=== PATIENT | male | born 1950 | race Caucasian/White ===

== ENCOUNTER 2019-01-13 09:10 | Inpatient (IN) | payer MEDICARE ==
[~2019-01-13] VITALS: Ht 180.3 cm; Wt 101.2 kg
[2019-01-13] VITALS (15 sets, daily range): BP systolic 103–142; BP diastolic 48–75
[~2019-01-13 09:10] MED LIST: ATENOLOL50 MG PO; ESCITALOPRAM OX10 MG PO; GLUCOPHAGE XL500 MG PO; LISINOPRIL10 MG PO; VERAPAMIL ER300 MG PO; Z.0.GLIPIZIDE ER10 M PO
[2019-01-13] MEDS ORDERED: SODIUM CHLORIDE 0.9% 1000ML 1,000 ML IV ONE (09:45)
[2019-01-13 09:50] LABS: BASOPHILS % 0.3 % (0.0-1.0); EOSINOPHILS # (AUTO) 0.1 (0.0-0.4); EOSINOPHILS % 0.5 % (0.0-6.0); HEMOGLOBIN 7.5 g/dL (14.0-18.0); LYMPHOCYTES % 6.7 % (18.0-39.1); MEAN CORPUSCULAR HEMOGLOBIN 32.2 pg (28-32); MEAN CORPUSCULAR HGB CONC 32.6 g/dL (31-35); MEAN CORPUSCULAR VOLUME 98.7 fL (81-99); MONOCYTES # (AUTO) 1.7 (0.2-0.8); MONOCYTES % 11.8 % (4.4-11.3); NEUTROPHILS # (AUTO) 11.6 (2.1-6.9); NEUTROPHILS % 80.1 % (38.7-80.0); PLATELET COUNT 241 x10e3/uL (140-360); RED BLOOD COUNT 2.33 x10e6/uL (4.3-5.7); RED CELL DISTRIBUTION WIDTH 12.6 % (11.7-14.4)
[2019-01-13 10:08] LABS: ALANINE AMINOTRANSFERASE 14 IU/L (0-55); ALBUMIN 3.6 g/dL (3.5-5.0); ALBUMIN/GLOBULIN RATIO 1.6 (0.8-2.0); ALKALINE PHOSPHATASE 40 IU/L (40-150); ANION GAP 12.5 mmol/L (8-16); BLOOD UREA NITROGEN 22 mg/dL (7-26); BUN/CREATININE RATIO 26 (6-25); CALCIUM 8.8 mg/dL (8.4-10.2); CARBON DIOXIDE 21 mmol/L (22-29); CHLORIDE 102 mmol/L (98-107); CREATINE KINASE 84 IU/L (30-200); CREATININE, SERUM 0.85 mg/dL (0.72-1.25); EST GLOMERULAR FILTRATION RATE > 60 ML/MIN (60-); GLUCOSE 307 mg/dL (74-118); POTASSIUM 4.5 mmol/L (3.5-5.1); SODIUM 131 mmol/L (136-145)
[2019-01-13] MEDS ORDERED: PANTOPRAZOLE 40 MG 10ML VIAL IV ONE (10:30)
[2019-01-13] MEDS ORDERED: ACETAMINOPHEN 1000 MG/100 ML IV ONE (10:30)
--- NOTE | 2019-01-13 10:30 | Diagnostic Imaging Report ---
Chest, 1 view, 01/13/2019. History: Shortness of breath. Comparison: None available. Findings: The cardiomediastinal silhouette and pulmonary vasculature are within normal limits for a portable exam. There is no focal consolidation or pleural effusion. There are no acute osseous or soft tissue abnormalities. Impression: No acute cardiopulmonary abnormality. Signed by: Chas Clements on 01/13/2019 10:27 AM
[2019-01-13 11:57] LABS: BILIRUBIN,URINE NEGATIVE (NEGATIVE); CLARITY,URINE CLEAR (CLEAR); COLOR,URINE YELLOW (YELLOW); KETONES,URINE NEGATIVE (NEGATIVE); LEUKOCYTE ESTERASE ,URINE NEGATIVE (NEGATIVE); NITRITE,URINE NEGATIVE (NEGATIVE); PROTEIN,URINE DIPSTICK NEGATIVE (NEGATIVE); URINE UROBILINOGEN 0.2 mg/dL (0.2 - 1)
[2019-01-13] MEDS ORDERED: NOVOLOG100 UNITS1 (12:41)
[2019-01-13] MEDS ORDERED: ATORVASTATIN CA20 MG PO (12:41)
[2019-01-13] MEDS ORDERED: LEVEMIR100 UNIT/1 (12:41)
--- NOTE | 2019-01-13 12:46 | Diagnostic Imaging Report ---
CT of the abdomen and pelvis, with contrast, 01/13/2019. History: Fever, melanoma. Comparison: None available. Technique: Multidetector CT scanning of the abdomen and pelvis was performed from the level of the lung bases to the inferior pubic rami after intravenous administration of contrast. Coronal and sagittal multiplanar reformations were obtained. RADIATION DOSE: Total DLP: 807 mGy*cm Dose modulation, iterative reconstruction, and/or weight based adjustment of the mA/kV was utilized to reduce the radiation dose to as low as reasonably achievable. Discussion: LUNG BASES: There is right basilar atelectasis. A calcified granuloma is present in the right lower lobe. ABDOMEN: Multiple surgical clips are present in the left upper quadrant. Cholecystectomy clips are also present. The liver is enlarged measuring over 18 cm in length. There is no focal hepatic abnormality. The biliary tree, spleen, pancreas, adrenal glands, and kidneys are normal. The hepatic vein, portal vein, and splenic vein are patent. The abdominal aorta is within normal limits for size. The stomach and proximal small bowel are unremarkable. There is no bowel dilatation. However, there is diffuse circumferential thickening of a long segment of the distal small bowel with adjacent mesenteric fat stranding. The terminal ileum is not involved in this process. There is no evidence of free air or focal fluid collection. A few scattered diverticuli are present within the sigmoid colon. The colon is otherwise unremarkable. Scattered subcentimeter mesenteric lymph nodes are present. There is no evidence of adenopathy or free fluid. PELVIS: The bladder, prostate, and seminal vesicles are normal in appearance. There is no evidence of free fluid or adenopathy. BONES AND SOFT TISSUES: Degenerative changes are present throughout the lumbar spine without evidence of lytic or sclerotic lesion. IMPRESSION: 1. Long segment of e distal small bowel wall thickening without evidence of obstruction, perforation, or abscess, consistent with inflammatory/infectious process. 2. Minimal colonic diverticulosis without evidence of diverticulitis. Signed by: Chas Clements on 01/13/2019 12:43 PM
[2019-01-13 12:54] LABS: INR 0.94; PROTHROMBIN TIME 13.1 seconds (11.9-14.5)
[2019-01-13 12:55] LABS: PARTIAL THROMBOPLASTIN TIME 25.8 seconds (23.8-35.5)
[2019-01-13] MEDS ORDERED: SODIUM CHLORIDE 0.9% 1000ML 1,000 ML IV SCH (13:00)
[2019-01-13 13:05] LABS: BACTERIA,URINE FEW /HPF; EPITHELIAL CELLS,URINE FEW /LPF; RBC,URINE 0-5 /HPF (0-5); WBC,URINE (MAN) 0-5 /HPF (0-5)
[2019-01-13] MEDS ORDERED: SODIUM CHLORIDE FLUSH 10 ML SYR INJ PRN (13:15)
[2019-01-13] MEDS ORDERED: SODIUM CHLORIDE 0.9% 250ML 250 ML IV ONE (13:15)
[2019-01-13] MEDS ORDERED: DEXTROSE 50% SYRINGE 50 ML IV PRN (13:15)
[2019-01-13] MEDS ORDERED: ERTAPENEM 1GM/NS 100ML 100 ML IV SCH (13:30)
[2019-01-13] MEDS ORDERED: INSULIN REGULAR, HUMAN 100 UNIT/1 ML 3ML VIAL SQ ONE (13:45)
--- OUTSIDE RECORDS SUMMARY | 2019-01-13 13:46 | XMS REPORT ---
Author Author [facility] Address Unknown Phone Unavailable Care Team Providers Care Oven Equipment Repairer Name Role Phone Jt LANE Unavailable Unavailable Problems This patient has no known problems. Allergies, Adverse Reactions, Alerts This patient has no known allergies or adverse reactions. Medications This patient has no known medications. Results Test Description Test Time Test Comments Text Results Atomic Results Result Comments CT ABDOMEN/PELVIS W 2019-01-13 12:33:00 [place] [address] Patient Name: LUCRECIA REYNOLDS MR #: [id number] : 1950 Age/Sex: 68/M Req #: [id number] Adm Physician: Ordered by: NAOMIE LANE MD Report #: [id number] Location: ER Room/Bed: Procedure: [id number] CT/CT ABDOMEN/PELVIS W Exam Date: 01/13/19 Exam Time: 1215 REPORT STATUS: Signed CT of the abdomen and pelvis, with contrast, . History: Fever, melanoma. Comparison: None available. Technique: Multidetector CT scanning of the abdomen and pelvis was performed from the level of the lung bases to the inferior pubic rami after intravenous administration of contrast. Coronal and sagittal multiplanar reformations were obtained. RADIATION DOSE: Total DLP: 807 mGy*cm Dose mod ulation, iterative reconstruction, and/or weight based adjustment of the mA/kV was utilized to reduce the radiation dose to as low as reasonably achievable. Discussion: LUNG BASES: There is right basilar atelectasis. A calcified granuloma is present in the right lower lobe. ABDOMEN: Multiple surgical clips are present in the left upper quadrant. Cholecystectomy clips are also p resent. The liver is enlarged measuring over 18 cm in length. There is no focal hepatic abnormality. The biliary tree, spleen, pancreas, adrenal glands, and kidneys are normal. The hepatic vein, portal vein, and splenic vein are patent. The abdominal aorta is within normal limits for size. The stomach and proximal small bowel are unremarkable. There is no bowel dilatation. However, there is diffuse circumferential thickening of a long segment of the distal small bowel with adjacent mesenteric fat stranding. The terminal ileum is not involved in this process. There is no evidence of free air or focal fluid collection. A few scattered diverticuli are present within the sigmoid colon. The colon is otherwise unremarkable. Scattered subcentimeter mesenteric lymph nodes are present. There is no evidence of adenopathy or free fluid. PELVIS: The bladder, prostate, and seminal vesicles are normal in appearance. There is no evidence of free fluid or adenopathy. BONES AND SOFT TISSUES: Degenerative changes are present throughout the lumbar spine without evidence of lytic or sclerotic lesion. IMPRESSION: 1. Long segment of e distal small bowel wall thickening without evidence of obstruction, perforation, or abscess, consistent with inflammatory/infectious process. 2. Minimal colonic diverticulosis without evidence of diverticulitis. Signed by: Glenna Dial on 01/13/2019 12:43 PM Dictated By: GLENNA DIAL MD 1243 Transcribed By: TAN on 01/13/19 1243 COPY TO: NAOMIE LANE MD CHEST SINGLE (PORTABLE) 2019-01-13 10:26:00 [place] [address] Patient Name: LUCRECIA REYNOLDS MR #: [id number] : 1950 Age/Sex: 68/M Req #: [id number] Adm Physician: Ordered by: NAOMIE LANE MD Report #: [id number] Location: ER Room/Bed: Procedure: [id number] DX/CHEST SINGLE (PORTABLE) Exam Date: 01/13/19 Exam Time: 929 REPORT STATUS: Signed Chest, 1 view, 01/13/2019. History: Shortness of breath. Comparison: None available. Findings: The cardiomediastinal silhouette and pulmonary vasculature are within normal limits for a portable exam. There is no focal consolidation or pleural effusion. There are no acute osseous or soft tissue abnormalities. Impression: No acute cardiopulmonary abnormality. Signed by: Glenna Dial on 01/13/2019 10:27 AM Dictated By: GLENNA DIAL MD 1027 Transcribed By: TAN on 01/13/19 1027 COPY TO: NAOMIE LANE MD
[2019-01-13] MEDS ORDERED: SODIUM CHLORIDE 0.9% 50ML 50 ML ONE (14:19)
[2019-01-13] MEDS ORDERED: IOPAMIDOL 370 MG/ML 200 ML INFUS..BTL INJ ONE (14:19)
[2019-01-13] MEDS: ONDANSETRON HCL INJ 2MG/ML 2ML 2 MG/ML VIAL IV PRN ×2 (14:38→19:36)
[2019-01-13] MEDS: SODIUM CHLORIDE 0.9% 1000ML 1,000 ML IV SCH (15:02)
[2019-01-13] MEDS ORDERED: ACETAMINOPHEN 325 MG TAB PO ONE ×2 (15:15→18:45)
[2019-01-13] MEDS ORDERED: INSULIN REGULAR, HUMAN 100 UNIT/1 ML 3ML VIAL SQ SCH (16:30)
[2019-01-13] MEDS ORDERED: SODIUM CHLORIDE 0.9% 250ML 250 ML ONE ×2 (17:18→21:32)
[2019-01-13] MEDS: INSULIN REGULAR, HUMAN 100 UNIT/1 ML 3ML VIAL SQ SCH (18:22)
[2019-01-13] MEDS ORDERED: ACETAMINOPHEN 325 MG TAB ONE (18:37)
[2019-01-13] MEDS ORDERED: DIPHENHYDRAMINE HCL INJ 50 MG/ML VIAL ONE (18:38)
--- NOTE | 2019-01-13 18:43 | NUR ---
Patient arrived to ICU bed 195. Dr. Scar Chandra notified of patient being nauseated, orders given for Zofran PRN. Dr. Julio Chandra notified that patient has low grade fever upon arrival, orders for one time dose Tylenol given. Telephone consent for blood transfusion obtained from Shreya with a second RN witness. Dr. Chandra notified at 1830 that patient developing increase in fever 102.2 oral temp about 1 hour into transfusion, MD ordered Tylenol and Benadryl. Will continue to monitor.
[2019-01-13] MEDS ORDERED: DIPHENHYDRAMINE HCL INJ 50 MG/ML VIAL IV ONE (18:45)
--- NOTE | 2019-01-13 18:57 | NUR ---
pt family contact number is [phone] Shreya Saenz the
[2019-01-14] VITALS (23 sets, daily range): BP systolic 99–126; BP diastolic 48–92
[2019-01-14] MEDS: ACETAMINOPHEN 325 MG TAB PO PRN ×3 (00:01→14:38)
[2019-01-14] MEDS: SODIUM CHLORIDE 0.9% 1000ML 1,000 ML IV SCH ×4 (03:55→23:28)
[2019-01-14 05:33] LABS: HEMATOCRIT 23.3 % (38.2-49.6); HEMOGLOBIN 7.6 g/dL (14.0-18.0)
[2019-01-14] MEDS: METRONIDAZOLE 500MG/NS 100ML 100 ML IV SCH ×5 (05:40→23:30)
[2019-01-14] MEDS: ONDANSETRON HCL INJ 2MG/ML 2ML 2 MG/ML VIAL IV PRN ×3 (05:41→19:55)
[2019-01-14] MEDS: INSULIN REGULAR, HUMAN 100 UNIT/1 ML 3ML VIAL SQ SCH ×5 (05:54→23:35)
[2019-01-14 07:13] LABS: INR 1.04; PROTHROMBIN TIME 14.1 seconds (11.9-14.5)
[2019-01-14] MEDS: PANTOPRAZOLE 40 MG 10ML VIAL IV SCH (08:47)
--- NOTE | 2019-01-14 12:18 | Consultation ---
DATE OF CONSULTATION: REASON FOR CONSULTATION: Fever. HISTORY OF PRESENT ILLNESS: This patient was a very pleasant 68-year-old white male, history of hypertension. The patient comes in to the emergency room with rectal bleed. The patient has been having pain in his knee and is taking Advil. There is no diarrhea, but he was having rectal bleed and some nausea, so he came here. When he came here shows nausea, fever, so I was asked to see him. The patient is currently lying in bed comfortably. REVIEW OF SYSTEMS: GENERAL: He just not feeling well in general, having rectal bleed. There is no diarrhea. Some nausea, but there is no vomiting. HEENT: No headache, visual changes, or hearing changes. GI: There is nausea, but no diarrhea. : There is no urgency or frequency. SKIN: There are no other rashes. JOINTS: There is no erythema or edema. All symptoms within normal limits. MEDICATIONS: His medication list is currently on Tylenol, Zofran. He is on ertapenem and metronidazole. LABORATORY DATA: His blood cultures pending. His urine culture is pending. He had a CT scan of the abdomen and pelvis, which showed there is large segment of distal small bowel thickening without evidence of obstruction, perforation, or abscess consistent with inflammatory infectious etiology. PHYSICAL EXAMINATION: GENERAL: He is currently alert, oriented, does not seem to be in acute distress. VITAL SIGNS: Stable, currently afebrile. HEENT: He is not icteric. NECK: Supple. No JVD. No lymphadenopathy. No thyromegaly. CHEST: Clear bilateral. HEART: S1 and S2. No S3, S4, or murmur. ABDOMEN: Soft. Bowel sounds present. No tenderness. EXTREMITIES: No edema. SKIN: No rash. IMPRESSION: 1. Fever and chills. CAT scan is significant with gastroenteritis. 2. Gastrointestinal bleed. 3. The patient does have history of colonoscopy 5 years ago, which was unremarkable. He also does deer leasing, but he said he does not eat a deer meat and he has not been in contact with deer till recently when apparently the illness started before he went to the deer. 4. Anemia of acute gastrointestinal bleed. We will await blood cultures, urine cultures. He may need small intestine workup, also colonoscopy. We will discuss with GI. MD MIHAELA Stephenson /[id number]
[2019-01-14 12:26] LABS: HEMOGLOBIN 7.7 g/dL (14.0-18.0)
[2019-01-14] MEDS: CEFEPIME 1GM/NS 0.9% 50 ML 50 ML IV SCH ×2 (13:15→22:00)
[2019-01-14] MEDS ORDERED: CEFEPIME HCL 1 GM VIAL IV SCH (14:00)
--- NOTE | 2019-01-14 15:53 | NUR ---
Nutrition Screen Note RD Recommendation for Physician: - When medically appropriate, rec advancing diet to cardiac/ ADA 2000kcal diet Plan of Care: RD following, monitoring for tolerance and adequacy Nutrition reason for involvement: Nutrition Risk Trigger - [facility] Primary Diagnose(s): Fever, chills, GI bleed, anemia PMH: HTN, DM Ht: 71in Wt: 223.06lb BMI: 31.1kg/m2 IBW: 172lb +/- 10% RD Assessment: (01/14) Chart reviewed. Labs and meds reviewed. 68yo M, who was admitted for fever, chills and rectal bleeding. Abd/pel CT showed distal small bowel wall thickening without evidence of obstruction, perforation, or abscess, consistent with inflammatory/infectious process. Visited pt in the room. 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 LBM 01/14. Pt denied any nausea or vomiting. Pt denied any chewing or swallowing issue at home. Weight has been stable. Currently NPO for further workup. Current Diet: NPO Malnutrition Evaluation (01/14/2019) The patient does not meet criteria for a specified degree of malnutrition at this time. Will re-evaluate at follow-up as appropriate. Diet Education Needs Assessment: Diet education not indicated. Nutrition Care Level: low Signed: Jeanna Norwood, MS, RD, LD
[2019-01-14] MEDS ORDERED: PEG (High)/E-LYTE SOLN 4,000 ML BTL PO NR (16:15)
--- NOTE | 2019-01-14 16:50 | Operative Report ---
DATE OF PROCEDURE: 01/14/2019 SURGEON: Saeid Chandra MD PROCEDURE: EGD with biopsies. INDICATIONS FOR EGD: Anemia, history of melena. MEDICATIONS: The patient was done under MAC, please see anesthesiologist's note. PROCEDURE IN DETAIL: With the patient in left lateral decubitus position, the flexible fiberoptic Olympus gastroscope was introduced into the esophagus under direct visualization without any difficulty. There was some patchy erythema noted in distal esophagus. The scope was then advanced with ease into the stomach. Mucosa overlying the antrum and the body revealed some patchy erythema and low-grade to moderate edema. Biopsies were obtained and sent to stain for H. pylori. The pylorus was intubated with ease and the scope was advanced all the way to the second portion of the duodenum. The scope was then withdrawn slowly mucosa overlying the proximal second portion and duodenal bulb appeared to be within normal limits. The scope was then withdrawn back into the stomach and retroflexed and mucosa overlying the fundus appeared to be within normal limits. The Tita fundoplication was noted and it was intact. The scope was then straightened out, it was subsequently withdrawn. The patient tolerated the procedure well. IMPRESSION: 1. Distal esophagitis, mild. 2. Tita fundoplication, intact. 3. Gastritis, biopsied, biopsies sent to stain for H. pylori. PLAN: Follow up histology. Initiate Protonix 40 mg one p.o. q.a.m. a.c. Findings none explained the patient's anemia or blood loss. He will need a colonoscopy. Saeid Chandra MD [facility]/[place] /[id number] cc: Ez Chandra MD
[2019-01-14] MEDS ORDERED: PROPOFOL IV EMULSION 10 MG/ML 50 ML VIAL ONE (18:33)
[2019-01-14 19:50] LABS: HEMATOCRIT 25.6 % (38.2-49.6); HEMOGLOBIN 8.4 g/dL (14.0-18.0)
[2019-01-15] VITALS (16 sets, daily range): BP systolic 100–135; BP diastolic 57–80
[2019-01-15] MEDS: ACETAMINOPHEN 325 MG TAB PO PRN ×3 (01:55→22:02)
[2019-01-15] MEDS: SODIUM CHLORIDE 0.9% 1000ML 1,000 ML IV SCH ×3 (05:07→20:46)
[2019-01-15 05:11] LABS: HEMATOCRIT 21.7 % (38.2-49.6)
[2019-01-15] MEDS: INSULIN REGULAR, HUMAN 100 UNIT/1 ML 3ML VIAL SQ SCH ×3 (05:31→18:32)
[2019-01-15] MEDS: CEFEPIME 1GM/NS 0.9% 50 ML 50 ML IV SCH ×3 (05:34→20:46)
[2019-01-15] MEDS: METRONIDAZOLE 500MG/NS 100ML 100 ML IV SCH ×3 (06:09→18:32)
[2019-01-15] MEDS: PANTOPRAZOLE 40 MG 10ML VIAL IV SCH (09:45)
[2019-01-15] MEDS ORDERED: CITRATE OF MAGNESIA 300ML BOTTLE ONE (11:05)
[2019-01-15] MEDS: ONDANSETRON HCL INJ 2MG/ML 2ML 2 MG/ML VIAL IV PRN ×2 (11:14→21:59)
[2019-01-15] MEDS ORDERED: CITRATE OF MAGNESIA 300ML BOTTLE PO ONE (11:35)
[2019-01-15 12:49] LABS: HEMATOCRIT 27.3 % (38.2-49.6); HEMOGLOBIN 8.8 g/dL (14.0-18.0)
[2019-01-15 18:25] LABS: HEMOGLOBIN 8.5 g/dL (14.0-18.0)
[2019-01-15] MEDS ORDERED: PROPOFOL IV EMULSION 10 MG/ML 20 ML VIAL ONE (18:29)
[2019-01-15] MEDS ORDERED: PROPOFOL IV EMULSION 10 MG/ML 50 ML VIAL ONE (18:29)
--- NOTE | 2019-01-15 19:00 | NUR ---
Report received from Isaias Lewis RN. Pt is currently in endoscopy per report.
[2019-01-15] MEDS ORDERED: MIDAZOLAM HCL 2 MG/2 ML VIAL ONE (19:26)
[2019-01-15] MEDS ORDERED: FENTANYL CITRATE/PF 100MCG/2 ML INJ ONE (19:26)
--- NOTE | 2019-01-15 20:32 | Operative Report ---
DATE OF PROCEDURE: 01/15/2019 SURGEON: Saeid Chandra MD PROCEDURE: Colonoscopy with polypectomy. INDICATIONS FOR COLONOSCOPY: Rectal bleeding, anemia. MEDICATIONS: The patient was done under MAC, please see anesthesiologist's note. PROCEDURE IN DETAIL: With the patient in the left lateral decubitus position, a flexible fiberoptic Olympus colonoscope was inserted into the rectum with ease and advanced all the way to the cecum. Scattered diverticular disease was noted throughout the colon. The scope was then withdrawn slowly and whatever was visualized the mucosa overlying the ascending and the transverse colon other than for diverticulosis, appeared to be grossly within normal limits. The colon was somewhat spastic and tortuous, and was not optimally visualized. Two polyps were snared from the descending colon. Both polypectomy sites were hemoclipped. The sigmoid other than for diverticulosis appeared to be within normal limits. One polyp was snared from the rectum. The scope was then retroflexed into the distal rectum and small internal hemorrhoids were noted, none of which was actively bleeding. The scope was then straightened out, it was subsequently withdrawn, and the patient tolerated the procedure well. IMPRESSION: 1. Pandiverticulosis. 2. Descending colon polyps x2, snared, both polypectomy site hemoclipped. 3. Rectal polyp, snared. 4. Internal hemorrhoids, none actively bleeding. PLAN: Follow up histology. Follow H and H. Initiate ADA diet. The patient can probably be moved to med/surg floor. Saeid Chandra MD [facility] /[id number] cc: Ez Chandra MD
--- NOTE | 2019-01-15 20:50 | NUR ---
Dr. Doll's office paging him per his request for post-colonoscopy report. Currently awaiting his return call.
--- NOTE | 2019-01-15 21:10 | NUR ---
Dr. Doll return called and I gave him post-colonoscopy report.
--- NOTE | 2019-01-15 21:25 | NUR ---
Transfer report called to Jo MENDES.
--- NOTE | 2019-01-15 21:30 | NUR ---
RECEIVED PATIENT FROM ICU AT THIS TIME, TRANSFERRED IN ICU BED. PATIENT REPORTS HEADACHE AND SOME NAUSEA, PRN MEDS GIVEN. IV RESUMED AT 125 ML/HR, R AC IV SITE ASYMPTOMATIC. NO OTHER NEEDS EXPRESSED. LUNG SOUNDS CLEAR. BOWEL SOUNDS ACTIVE. PATIENT REPORTS HE HAS PASSED GAS SINCE PROCEDURE TODAY, BUT HAS NOT YET HAD A BM. NO EDEMA NOTED. SKIN INTACT. NO S&S OF DISTRESS NOTED. BED LOCKED IN LOWEST POSITION, SIDE RAILS UPX2, CALL LIGHT IN REACH.
--- NOTE | 2019-01-15 21:40 | NUR ---
Pt transferred to room 104 without event. Jo MENDES at the bedside with the pt at this time, chart placed at nursing station by community outreach manager desk.
[2019-01-16] VITALS (7 sets, daily range): BP systolic 110–159; BP diastolic 59–75
[2019-01-16] MEDS: METRONIDAZOLE 500MG/NS 100ML 100 ML IV SCH ×5 (00:19→23:11)
[2019-01-16 00:23] LABS: HEMOGLOBIN 7.3 g/dL (14.0-18.0)
--- NOTE | 2019-01-16 00:50 | NUR ---
PATIENT REQUESTED INFORMATION ON TELE BOX AND WHAT IT IS FOR. ANSWERED PATIENT'S QUESTIONS. ASSISTED PATIENT TO GET COMFORTABLE IN BED. NO OTHER NEEDS STATED. BED LOCKED IN LOWEST POSITION, SIDE RAILS UPX2, CALL LIGHT IN REACH.
--- NOTE | 2019-01-16 04:33 | NUR ---
ASSISTED PATIENT TO BATHROOM. STEADY GAIT NOTED. NO OTHER NEEDS EXPRESSED. BED LOCKED IN LOWEST POSITION, SIDE RAILS UPX2, CALL LIGHT IN REACH.
[2019-01-16] MEDS: CEFEPIME 1GM/NS 0.9% 50 ML 50 ML IV SCH ×3 (05:20→21:09)
[2019-01-16] MEDS: ACETAMINOPHEN 325 MG TAB PO PRN (06:32)
[2019-01-16 06:34] LABS: HEMOGLOBIN 6.7 g/dL (14.0-18.0)
[2019-01-16 06:36] LABS: HEMATOCRIT 20.9 % (38.2-49.6)
--- NOTE | 2019-01-16 07:01 | NUR ---
PAGERashaun Kim LARA CONCERNING PATIENT'S HGB- 6.7 AND HCT - 20.9
--- NOTE | 2019-01-16 07:29 | NUR ---
Spoke with Dr. brown and new orders to transfuse 2 units of blood and call GI .
--- NOTE | 2019-01-16 07:32 | NUR ---
Received patient lying in bed. Respiration even and unlabored without SOB. Call light in reach.
[2019-01-16] MEDS ORDERED: SODIUM CHLORIDE 0.9% 250ML 250 ML IV ONE (07:45)
[2019-01-16] MEDS: INSULIN REGULAR, HUMAN 100 UNIT/1 ML 3ML VIAL SQ SCH ×4 (08:15→21:25)
[2019-01-16] MEDS: PANTOPRAZOLE 40 MG 10ML VIAL IV SCH (08:26)
[2019-01-16] MEDS: SODIUM CHLORIDE 0.9% 1000ML 1,000 ML IV SCH ×3 (08:37→21:07)
--- NOTE | 2019-01-16 11:20 | NUR ---
Patient awake, alert. Started first unit of PRBC. Verified signed consent. Respiration even and unlabored without SOB. No signs of adverse reaction noted. Will continue to monitor patient. Call light within reach.
[2019-01-16] MEDS: ONDANSETRON HCL INJ 2MG/ML 2ML 2 MG/ML VIAL IV PRN ×2 (11:58→21:09)
--- NOTE | 2019-01-16 12:01 | NUR ---
Patient c/o feeling nauseated. PRN nausea meds given. Patient stated he felt nauseated prior to blood transfusion. Will continue to monitor
--- NOTE | 2019-01-16 14:20 | NUR ---
First unit of blood complete and patient tolerated well. No more nausea noted
--- NOTE | 2019-01-16 14:33 | NUR ---
Patient went for a GI bleed scan.
--- NOTE | 2019-01-16 16:50 | NUR ---
Patient returned from nuclear medicine at this time.
--- NOTE | 2019-01-16 17:30 | Diagnostic Imaging Report ---
Tagged-RBC GI Bleed Study Clinical information: 68-year-old male with blood in stool everyday x 1 week and anemia. Discussion: The patient's own red blood cells were labeled with 25 mCi of technetium-99m pertechnetate using the in vitro method (UltraTag). Dynamic images of the abdomen were obtained through 60 minutes. Distribution of tracer activity appears physiologic throughout the abdomen. No abnormal accumulation of tracer is seen within the gastrointestinal lumen. Impression: No scan evidence of active gastrointestinal bleeding at this time. Signed by: Dr. Leda Monique M.D. on 01/16/2019 5:27 PM
--- NOTE | 2019-01-16 18:02 | Progress Note ---
DATE: SUBJECTIVE: Mr. Saenz is a gentleman, who is 68 years old. He is being worked up for anemia and a possible GI bleed, so far had upper and lower endoscopies by Dr. Chandra with no finding of source of bleeding. Today, he underwent a GI bleeding scan, which the results are still pending. His CT scan of the abdomen shows thickened long segment of distal small bowel, probably the source of the bleed. MEDICATIONS: Includin. Cefepime. 2. Insulin. 3. Protonix. 4. Metronidazole. 5. Lexapro. OBJECTIVE: GENERAL: He is awake, alert, oriented, tolerating soft diet well. ABDOMEN: Soft, not distended. Not tender. He had a bowel movement today. VITAL SIGNS: He is afebrile, hemodynamically stable. LABORATORY DATA: Hemoglobin 6.7, hematocrit 28.9. He had 1 unit of blood transfusion. He is pending to have another unit and we will recheck his blood count. Liver function normal. Urinalysis normal. BUN and creatinine normal. Sodium and potassium normal. PLAN: See what the bleeding scan shows. Continue to monitoring his anemia or low blood count, and at one point, he needs to have an M2 capsule for reviewing of that distal small bowel where the CT scan indicated an illness. Shyanne Schmid MD RD/[facility] /[id number]
--- NOTE | 2019-01-16 19:10 | NUR ---
Bedside report walking rounds complete. Pt resting in bed and in no apparent distress. All safety measures ensured and pt call long near. Pt has no complaints of pain. Pt to still receive 1 unit PRBC.
[2019-01-16] MEDS ORDERED: TEMAZEPAM 15 MG CAP PO PRN (21:00)
--- NOTE | 2019-01-16 21:12 | NUR ---
Charge nurse called to unit to report that pt had called his granddaughter to report that" the nurses were ignoring him" and that he had asked for nausea medication an hour ago. I had checked on the pt twice within that timeframe and no nausea medication was requested. I went in to talk to the pt to ask about his request for nausea medication. He stated that he did not directly ask me for it but did tell the PCT that he wanted medication. I spoke to the PCT who stated that the pt did not request medication and only stated that he felt dizzy. I explained to pt to contact me directly using the call light or during my rounds if he needs anything. Pt verbalized understanding. Zofran 4mg IV and emesis bag was given.
[2019-01-17] VITALS: BP 123/62
[2019-01-17] MEDS: ACETAMINOPHEN 325 MG TAB PO PRN (00:46)
[2019-01-17] MEDS ORDERED: SODIUM CHLORIDE 0.9% 250ML 250 ML ONE (01:07)
--- NOTE | 2019-01-17 01:32 | NUR ---
2nd unit of blood started. Pt tolerated well with no complaints.
[2019-01-17 04:00] VITALS: BP 143/67
--- NOTE | 2019-01-17 04:00 | NUR ---
Transfusion complete. Pt tolerated well and no s/s noted.
[2019-01-17] MEDS: SODIUM CHLORIDE 0.9% 1000ML 1,000 ML IV SCH (05:07)
[2019-01-17] MEDS: CEFEPIME 1GM/NS 0.9% 50 ML 50 ML IV SCH (05:45)
[2019-01-17] MEDS: METRONIDAZOLE 500MG/NS 100ML 100 ML IV SCH (06:23)
[2019-01-17 06:34] LABS: BASOPHILS % 0.3 % (0.0-1.0); EOSINOPHILS # (AUTO) 0.2 (0.0-0.4); EOSINOPHILS % 2.9 % (0.0-6.0); HEMATOCRIT 26.9 % (38.2-49.6); HEMOGLOBIN 8.9 g/dL (14.0-18.0); LYMPHOCYTES % 25.1 % (18.0-39.1); MEAN CORPUSCULAR HEMOGLOBIN 31.4 pg (28-32); MEAN CORPUSCULAR HGB CONC 33.1 g/dL (31-35); MEAN CORPUSCULAR VOLUME 95.1 fL (81-99); MONOCYTES % 12.2 % (4.4-11.3); NEUTROPHILS # (AUTO) 4.6 (2.1-6.9); NEUTROPHILS % 58.4 % (38.7-80.0); PLATELET COUNT 231 x10e3/uL (140-360); RED BLOOD COUNT 2.83 x10e6/uL (4.3-5.7); RED CELL DISTRIBUTION WIDTH 14.1 % (11.7-14.4)
[2019-01-17 07:00] LABS: ANION GAP 10.7 mmol/L (8-16); BLOOD UREA NITROGEN 11 mg/dL (7-26); BUN/CREATININE RATIO 15 (6-25); CALCIUM 8.2 mg/dL (8.4-10.2); CARBON DIOXIDE 26 mmol/L (22-29); CHLORIDE 106 mmol/L (98-107); CREATININE, SERUM 0.74 mg/dL (0.72-1.25); EST GLOMERULAR FILTRATION RATE > 60 ML/MIN (60-); GLUCOSE 192 mg/dL (74-118); POTASSIUM 3.7 mmol/L (3.5-5.1); SODIUM 139 mmol/L (136-145)
--- NOTE | 2019-01-17 07:15 | NUR ---
Received patient sitting on the side of the bed. Awake, alert. Respiration even and unlabored without SOB. Denies pain. Call light in reach.
--- NOTE | 2019-01-17 07:27 | NUR ---
Bedside report and walking rounds complete with day shift RN
[2019-01-17 07:40] VITALS: BP 142/79
[2019-01-17] MEDS: INSULIN REGULAR, HUMAN 100 UNIT/1 ML 3ML VIAL SQ SCH (08:19)
[2019-01-17] MEDS: PANTOPRAZOLE 40 MG 10ML VIAL IV SCH (08:25)
--- NOTE | 2019-01-17 08:26 | NUR ---
Awake, alert. Sitting on the side of the bed. Breakfast at bedside.Patient refused lexapro medication. Patient states " I have not taking that medication for 3 years '
[2019-01-17] MEDS ORDERED: ESCITALOPRAM OXALATE 10 MG TAB PO SCH (09:00)
[2019-01-17 09:09] VITALS: BP 142/79
--- NOTE | 2019-01-17 09:56 | NUR ---
Dr Rivera notified of discharge and approved of discharge.
[2019-01-17] MEDS ORDERED: CIPRO500 MG PO (10:00)
[2019-01-17] MEDS ORDERED: FLAGYL500 MG PO (10:00)
[2019-01-17] MEDS ORDERED: LEXAPRO10 MG PO (10:01)
[2019-01-17] MEDS ORDERED: TEMAZEPAM15 MG PO (10:02)
--- NOTE | 2019-01-17 10:10 | NUR ---
Patient is discharged via wheelchair. Respiration even and unlabored without SOB.
== END 2019-01-17 10:14 | disposition home or self-care (01) | DRG 378 ==
LOC: ER 09:10 → ERHOLD 13:43 → ICU 14:04 → MED/SURG 01-15 21:39
PROC: 02HV33Z Insertion of Infusion Device into Superior Vena Cava, Percutaneous Approach (ICD-10-PCS; 2019-01-13)
PROC: 0DB78ZX Excision of Stomach, Pylorus, Via Natural or Artificial Opening Endoscopic, Diagnostic (ICD-10-PCS; principal; 2019-01-14 15:44)
PROC: 0DDM8ZX Extraction of Descending Colon, Via Natural or Artificial Opening Endoscopic, Diagnostic (ICD-10-PCS; 2019-01-15)
PROC: 0DDE8ZX Extraction of Large Intestine, Via Natural or Artificial Opening Endoscopic, Diagnostic (ICD-10-PCS; 2019-01-15)
PROC: 0DDP8ZX Extraction of Rectum, Via Natural or Artificial Opening Endoscopic, Diagnostic (ICD-10-PCS; 2019-01-15)
DX: K92.2 Gastrointestinal hemorrhage, unspecified (principal); K57.92 Diverticulitis of intestine, part unspecified, without perforation or abscess without bleeding; D62 Acute posthemorrhagic anemia; K63.89 Other specified diseases of intestine; E11.9 Type 2 diabetes mellitus without complications; Z79.4 Long term (current) use of insulin; K20.9 Esophagitis, unspecified; K62.1 Rectal polyp
CPT/HCPCS: 36415; 43239; 45378; 45384; 71045; 74177; 78278; 80048; 80053; 81001; 82550; 82553; 82948; 83605; 84484; 85014; 85018; 85025; 85610; 85730; 86850; 86900; 86920; 87040; 87086; 88305; 88312; 93005; 96361; 99285; A9512; J0692; J1200; J1817; J2250; J2405; J3010; J7030; J7050; P9016; Q9967

== ENCOUNTER → 2019-01-21 | Outpatient (CLI) | payer MEDICARE ==
[~2019-01-21] MED LIST changes: +ATORVASTATIN CA20 MG PO; +CIPRO500 MG PO; +FLAGYL500 MG PO; +LEVEMIR100 UNIT/1; +LEXAPRO10 MG PO; +NOVOLOG100 UNITS1; +TEMAZEPAM15 MG PO
[2019-01-21 16:42] LABS: BASOPHILS % 0.2 % (0.0-1.0); EOSINOPHILS # (AUTO) 0.3 (0.0-0.4); EOSINOPHILS % 2.2 % (0.0-6.0); LYMPHOCYTES # (AUTO) 3.3 (1.0-3.2); LYMPHOCYTES % 26.7 % (18.0-39.1); MEAN CORPUSCULAR HEMOGLOBIN 32.3 pg (28-32); MEAN CORPUSCULAR HGB CONC 31.9 g/dL (31-35); MEAN CORPUSCULAR VOLUME 101.1 fL (81-99); MONOCYTES # (AUTO) 1.2 (0.2-0.8); MONOCYTES % 9.9 % (4.4-11.3); NEUTROPHILS # (AUTO) 6.9 (2.1-6.9); NEUTROPHILS % 55.5 % (38.7-80.0); PLATELET COUNT 387 x10e3/uL (140-360); RED BLOOD COUNT 1.89 x10e6/uL (4.3-5.7); RED CELL DISTRIBUTION WIDTH 16.1 % (11.7-14.4)
[2019-01-21 16:47] LABS: HEMATOCRIT 19.1 % (38.2-49.6); HEMOGLOBIN 6.1 g/dL (14.0-18.0)
[2019-01-21 17:00] LABS: ALANINE AMINOTRANSFERASE 31 IU/L (0-55); ALBUMIN 3.1 g/dL (3.5-5.0); ALBUMIN/GLOBULIN RATIO 1.3 (0.8-2.0); ALKALINE PHOSPHATASE 40 IU/L (40-150); ANION GAP 10.8 mmol/L (8-16); BLOOD UREA NITROGEN 21 mg/dL (7-26); BUN/CREATININE RATIO 20 (6-25); CALCIUM 8.5 mg/dL (8.4-10.2); CARBON DIOXIDE 26 mmol/L (22-29); CHLORIDE 101 mmol/L (98-107); CREATININE, SERUM 1.03 mg/dL (0.72-1.25); EST GLOMERULAR FILTRATION RATE > 60 ML/MIN (60-); GLUCOSE 313 mg/dL (74-118); POTASSIUM 3.8 mmol/L (3.5-5.1); SODIUM 134 mmol/L (136-145)
== END ==
LOC: LAB 16:17
PROVIDERS: ATTEND Surgery
DX: K92.2 Gastrointestinal hemorrhage, unspecified (principal); D64.9 Anemia, unspecified
CPT/HCPCS: 36415; 80053; 85025

== ENCOUNTER 2019-01-22 09:45 | Inpatient (IN) | payer MEDICARE ==
[~2019-01-22] VITALS: Ht 180.3 cm; Wt 103.4 kg
--- NOTE | 2019-01-22 10:06 | NUR ---
RECEIVED PATIENT DIRECT ADMIT. PATIENT A/O X3, EVEN RESPIRATIONS ON RA. BOWEL SOUNDS X4, SKIN INTACT, NO EDEMA. PATIENT AMBULATES WITH STANDBY ASSIST. LEFT WRIST 20 GAUGE IV WITH NS @ 100 CC/HR. NO PAIN OR DISCOMFORT AT THIS TIME. ORIENTED PATIENT TO ROOM AND CALL LIGHT. BED LOW, WHEELS LOCKED, SIDE RAILS X2. CALL LIGHT IN REACH WILL CONTINUE TO MONITOR PATIENT.
--- NOTE | 2019-01-22 11:09 | NUR ---
EDUCATED ABOUT IMM, SIGNED, FILED IN CHART, WITH COPY LEFT WITH FAMILY AT BEDSIDE.
[2019-01-22 11:43] VITALS: BP 161/74
[2019-01-22] MEDS: SODIUM CHLORIDE 0.9% 1000ML 1,000 ML IV SCH ×2 (11:47→20:15)
[2019-01-22] MEDS: PANTOPRAZOLE 40 MG 10ML VIAL IV SCH (11:47)
[2019-01-22] MEDS ORDERED: SODIUM CHLORIDE 0.9% 250ML 250 ML IV ONE (12:30)
[2019-01-22 12:41] VITALS: BP 161/76
[2019-01-22 12:45] VITALS: BP 161/76
[2019-01-22 13:11] LABS: FOLATE 15.7 ng/mL (7.0-15.4)
--- NOTE | 2019-01-22 13:30 | NUR ---
PATIENT STATED HE HAS A HEADACHE. PAGED DR QIU FOR ORDERS. NEW ORDERS FOR TYLENOL 650 MG PO Q4 PRN AND CLEAR LIQUID DIET. NEW ORDERS IMPLEMENTED.
[2019-01-22] MEDS: ACETAMINOPHEN 325 MG TAB PO PRN (13:38)
--- NOTE | 2019-01-22 15:35 | NUR ---
FIRST UNIT OF BLOOD TRANSFUSION STARTED. PATIENT TOLERATING WELL NO S/S OF DISTRESS. CALL LIGHT IN REACH WILL CONTINUE TO MONITOR PATIENT.
[2019-01-22 15:50] LABS: INR 1.01; PROTHROMBIN TIME 13.8 seconds (11.9-14.5)
[2019-01-22 15:51] LABS: PARTIAL THROMBOPLASTIN TIME 27.9 seconds (23.8-35.5)
[2019-01-22 16:40] VITALS: BP 152/74
[2019-01-22] MEDS ORDERED: DEXTROSE 50% SYRINGE 50 ML IV PRN (16:45)
[2019-01-22] MEDS: INSULIN LISPRO 100 UNIT/1 ML 3ML VIAL SQ SCH ×2 (17:14→21:30)
--- NOTE | 2019-01-22 17:55 | NUR ---
FIRST UNIT COMPLETE. PATIENT TOLERATED WELL, NO SIGNS OF DISTRESS.
[2019-01-22] MEDS: LISINOPRIL 10 MG TAB PO SCH (18:08)
--- NOTE | 2019-01-22 19:26 | NUR ---
Called Dr. Manuel Chandra regarding nausea. Orders received.
[2019-01-22] MEDS ORDERED: ONDANSETRON HCL INJ 2MG/ML 2ML 2 MG/ML VIAL IV PRN (19:30)
[2019-01-22 20:00] VITALS: BP 126/68
[2019-01-22 20:28] VITALS: BP 141/84
--- NOTE | 2019-01-22 20:45 | Diagnostic Imaging Report ---
Tagged-RBC GI Bleed Study Clinical information: 68-year-old male with blood in stool x 2 weeks; anemia. Discussion: The patient's own red blood cells were labeled with 27.5 mCi of technetium-99m pertechnetate using the in vitro method (UltraTag). Dynamic images of the abdomen were obtained through 60 minutes. Impression: No scan evidence of active gastrointestinal bleeding at this time. Prior tagged-RBC GI bleed study of 01/16/2019 was also negative for active bleed. Signed by: Dr. Leda Monique M.D. on 01/22/2019 8:41 PM
[2019-01-22] MEDS ORDERED: INSULIN LISPRO 100 UNIT/1 ML 3ML VIAL SQ SCH (21:00)
--- NOTE | 2019-01-22 21:30 | NUR ---
Spoke with Dr. Dakota Gerber and is aware of GI Bleed scans. Ok to give Restoril 30mg PO HS PRN.
[2019-01-22] MEDS: TEMAZEPAM 15 MG CAP PO PRN (21:35)
[2019-01-22] MEDS ORDERED: SODIUM CHLORIDE 0.9% 250ML 250 ML ONE (22:55)
[2019-01-23] VITALS (8 sets, daily range): BP systolic 111–148; BP diastolic 58–85
[2019-01-23] MEDS: ACETAMINOPHEN 325 MG TAB PO PRN (02:26)
[2019-01-23] MEDS ORDERED: SODIUM CHLORIDE 0.9% 250ML 250 ML ONE (02:29)
[2019-01-23] MEDS: SODIUM CHLORIDE 0.9% 1000ML 1,000 ML IV SCH ×2 (06:15→16:41)
[2019-01-23 07:00] LABS: BASOPHILS % 0.3 % (0.0-1.0); EOSINOPHILS # (AUTO) 0.2 (0.0-0.4); EOSINOPHILS % 2.1 % (0.0-6.0); HEMATOCRIT 27.2 % (38.2-49.6); HEMOGLOBIN 8.9 g/dL (14.0-18.0); LYMPHOCYTES # (AUTO) 2.2 (1.0-3.2); LYMPHOCYTES % 25.4 % (18.0-39.1); MEAN CORPUSCULAR HEMOGLOBIN 31.8 pg (28-32); MEAN CORPUSCULAR HGB CONC 32.7 g/dL (31-35); MEAN CORPUSCULAR VOLUME 97.1 fL (81-99); MONOCYTES % 11.7 % (4.4-11.3); NEUTROPHILS # (AUTO) 5.2 (2.1-6.9); NEUTROPHILS % 59.5 % (38.7-80.0); PLATELET COUNT 281 x10e3/uL (140-360); RED CELL DISTRIBUTION WIDTH 16.8 % (11.7-14.4)
--- NOTE | 2019-01-23 07:11 | NUR ---
RECEIVED PATIENT AWAKE RESTING IN BED NO SIGNS OF DISTRESS. BED LOW, WHEELS LOCKED, SIDE RAILS X2. CALL LIGHT IN REACH. WILL CONTINUE TO MONITOR PATIENT.
[2019-01-23 07:18] LABS: ANION GAP 11.4 mmol/L (8-16); BLOOD UREA NITROGEN 8 mg/dL (7-26); BUN/CREATININE RATIO 10 (6-25); CALCIUM 8.6 mg/dL (8.4-10.2); CARBON DIOXIDE 28 mmol/L (22-29); CHLORIDE 104 mmol/L (98-107); CREATININE, SERUM 0.82 mg/dL (0.72-1.25); EST GLOMERULAR FILTRATION RATE > 60 ML/MIN (60-); GLUCOSE 165 mg/dL (74-118); POTASSIUM 4.4 mmol/L (3.5-5.1); SODIUM 139 mmol/L (136-145)
[2019-01-23] MEDS: INSULIN LISPRO 100 UNIT/1 ML 3ML VIAL SQ SCH ×4 (07:30→21:30)
[2019-01-23] MEDS: LISINOPRIL 10 MG TAB PO SCH ×2 (08:34→16:41)
[2019-01-23] MEDS: PANTOPRAZOLE 40 MG 10ML VIAL IV SCH (08:34)
[2019-01-23] MEDS: ESCITALOPRAM OXALATE 10 MG TAB PO SCH (08:34)
--- NOTE | 2019-01-23 10:00 | NUR ---
PATIENT A/O X3, EVEN RESPIRATIONS ON RA. BOWEL SOUNDS X4, SKIN INTACT, NO EDEMA. PATIENT AMBULATES WITH STANDBY ASSIST. LEFT WRIST 20 GAUGE IV WITH NS @ 100 CC/HR. NO PAIN OR DISCOMFORT AT THIS TIME. BED LOW, WHEELS LOCKED, SIDE RAILS X2. CALL LIGHT IN REACH WILL CONTINUE TO MONITOR PATIENT.
[2019-01-23] MEDS ORDERED: SODIUM CHLORIDE 0.9% 100 ML 100 ML ONE (17:29)
[2019-01-23] MEDS ORDERED: IOPAMIDOL 370 MG/ML 200 ML INFUS..BTL INJ ONE (17:29)
--- NOTE | 2019-01-23 18:27 | NUR ---
Consent signed by patient and placed in the chart for procedure tomorrow morning.
--- NOTE | 2019-01-23 18:43 | Diagnostic Imaging Report ---
CTA OF THE ABDOMEN and PELVIS HISTORY: Acute GI bleed COMPARISON: CT of the abdomen and pelvis January 13, 2019. TECHNIQUE: CT of the abdomen, pelvis and lower extremities to the level of the tibial plateaus was performed after the administration of intravenous contrast following standard departmental protocol. IV CONTRAST: 100 cc of Isovue-370. ORAL CONTRAST: Water RADIATION DOSE: Total DLP: 1486.54 mGy*cm Dose modulation, iterative reconstruction, and/or weight based adjustment of the mA/kV was utilized to reduce the radiation dose to as low as reasonably achievable. COMPLICATIONS: None DISCUSSION: CTA: Scattered atherosclerotic vascular calcifications, including the coronary arteries. No aneurysm or dissection. The celiac, superior mesenteric, and inferior mesenteric arteries are patent. Intermediate to high-grade focal stenosis of the proximal right renal artery. LOWER THORAX: Calcified right lung base granuloma. Mild atelectasis versus scarring. HEPATOBILIARY: Diffusely decreased attenuation of the liver. No focal hepatic lesions. No biliary ductal dilatation. Metallic clips in the right upper quadrant of the abdomen are compatible with prior cholecystectomy. SPLEEN: No splenomegaly. PANCREAS: No focal masses or ductal dilatation. ADRENALS: No discrete adrenal nodule identified. KIDNEYS/URETERS: No hydronephrosis, stones, or solid mass lesions. PELVIC ORGANS/BLADDER: The visualized pelvic organs appear unremarkable. PERITONEUM / RETROPERITONEUM: No free air or fluid. Left upper quadrant metallic surgical clips. LYMPH NODES: No pathologically enlarged lymph node is identified. GI TRACT: No distention or wall thickening identified. The appendix is normal. Mild scattered colonic diverticuli. The previously described small bowel segmental thickening appears improved. BONES: No acute osseous lesion. Multifocal degenerative changes. SOFT TISSUES: Unremarkable. IMPRESSION: 1. No aneurysm, dissection, or high-grade central stenosis of the celiac, superior mesenteric, or inferior mesenteric arteries. 2. Intermediate to high-grade focal stenosis of the proximal right renal artery. 3. Hepatic steatosis. 4. No specific CT evidence of an acute GI bleed. Signed by: Dr. Glenroy Toney D.O., M.M.M. on 01/23/2019 6:40 PM
[2019-01-23] MEDS: TEMAZEPAM 15 MG CAP PO PRN (21:45)
[2019-01-24] VITALS (8 sets, daily range): BP systolic 100–149; BP diastolic 51–72
[2019-01-24] MEDS: SODIUM CHLORIDE 0.9% 1000ML 1,000 ML IV SCH ×3 (01:26→22:15)
[2019-01-24] MEDS: INSULIN LISPRO 100 UNIT/1 ML 3ML VIAL SQ SCH ×4 (07:30→21:38)
[2019-01-24] MEDS: ESCITALOPRAM OXALATE 10 MG TAB PO SCH (09:00)
[2019-01-24] MEDS: LISINOPRIL 10 MG TAB PO SCH ×2 (09:00→16:47)
[2019-01-24] MEDS: ACETAMINOPHEN 325 MG TAB PO PRN (09:15)
[2019-01-24] MEDS: PANTOPRAZOLE 40 MG 10ML VIAL IV SCH (09:21)
[2019-01-24] MEDS ORDERED: BUPIVACAINE 0.25%/EPI 30ML SDV INJ ONE (11:42)
--- NOTE | 2019-01-24 12:10 | NUR ---
Patient went to OR at this time.
--- NOTE | 2019-01-24 12:30 | NUR ---
EDUCATED ABOUT IMM, SIGNED, FILED IN CHART, WITH COPY LEFT WITH FAMILY AT BEDSIDE
[2019-01-24] MEDS ORDERED: NEOSTIGMINE 1 MG/ML 10ML VIAL ONE (14:29)
[2019-01-24] MEDS ORDERED: SUGAMMADEX SODIUM 200 MG/2 ML VIAL IV ONE (14:36)
[2019-01-24] MEDS ORDERED: HYDROCODONE/APAP 7.5MG-325MG 1 EA TAB PO PRN (14:45)
[2019-01-24] MEDS ORDERED: HYDROMORPHONE 1MG/1ML INJ IV PRN (14:45)
[2019-01-24] MEDS ORDERED: ACETAMINOPHEN 1000 MG/100 ML IV PRN (14:45)
--- NOTE | 2019-01-24 15:12 | NUR ---
BACK IN ROOM VIA STRETCHER, AMBULATED TO BED, VOICES NO NEEDS AT THIS TIME, 3 TROCAR SITES CDI, CALL LIGHT WITHIN REACH
--- NOTE | 2019-01-24 16:50 | NUR ---
TOLERATING LIQUIDS AT THIS TIME, CALL LIGHT WITHIN REACH, FAMILY AT SIDE
--- NOTE | 2019-01-24 17:14 | Operative Report ---
DATE OF PROCEDURE: 01/24/2019 SURGEON: Kirby Gerber MD PREOPERATIVE DIAGNOSIS: Gastrointestinal bleeding with suspicious segment of the mid small bowel being the source of the bleeding. POSTOPERATIVE DIAGNOSIS: Normal small bowel, gastrointestinal bleed likely secondary to right colonic diverticulosis. OPERATION PERFORMED: Diagnostic laparoscopy. ANESTHESIA: General. COMPLICATIONS: None. ESTIMATED BLOOD LOSS: Minimal. DESCRIPTION OF PROCEDURE: With the patient lying in bed in the supine position under good general anesthesia, the abdomen was prepped with Betadine solution and draped in the usual manner. A Veress needle was introduced into the umbilicus and pneumoperitoneum was established without any difficulty. A 5 mm trocar was placed into the umbilicus and a 5 mm video laparoscope was placed into the intra-abdominal cavity. Under direct vision, a 5 mm trocar was placed in the suprapubic region. Another 5 mm trocar was placed in the left lower abdomen. Video laparoscopy was then performed at this point. The liver appeared to be normal. There was a small adhesion to the gallbladder fossa from the patient's previous cholecystectomy. There were some adhesions of the omentum to the anterior abdominal wall and the upper abdomen from the previous upper midline incision. The cecum was then identified at this point. The cecum was actually located in the right upper quadrant and the terminal ileum was then identified. The terminal ileum was then run all the way backwards to the ligament of Treitz very slowly and carefully done. The entire length of the small bowel was normal. There was no sign of any thickening of the bowel. There was no sign of any tumor. There was no creeping fat representing any kind of inflammatory bowel disease. The entire length of the small bowel was perfectly normal for the small bowel. The colon was then visualized as well. There appeared to be small amount of residual blood in the transverse colon as well as the descending colon, but there was also no colonic lesions identified. The patient's bleeding is likely related to colonic AVM or diverticulum on the right side of the colon. The pneumoperitoneum was then evacuated and all the trocars were removed under direct vision and all the wounds were closed with subcuticular 5-0 Vicryl. Benzoin, Steri-Strips, and Band-Aids were applied. The sponge, lap, and needle count was correct. The patient tolerated the procedure well and returned to the recovery room in stable condition. MD NEGRITA Beck/KEO /[id number]
[2019-01-24] MEDS ORDERED: PROPOFOL IV EMULSION 10 MG/ML 20 ML VIAL ONE (17:26)
[2019-01-24] MEDS ORDERED: ACETAMINOPHEN 1000 MG/100 ML IV ONE (17:26)
[2019-01-24] MEDS ORDERED: SEVOFLURANE INHAL SOLN 250 ML PEN BTL ONE (17:26)
[2019-01-24] MEDS ORDERED: ONDANSETRON HCL INJ 2MG/ML 2ML 2 MG/ML VIAL ONE (17:26)
[2019-01-24] MEDS ORDERED: LIDOCAINE HCL 2% LOCAL INJ 5 ML SDV VIAL INJ ONE (17:26)
[2019-01-24] MEDS ORDERED: GLYCOPYRROLATE INJ 1MG/ 5 ML SYR ONE (17:26)
[2019-01-24] MEDS ORDERED: EPHEDRINE SULFATE INJ 50 MG/10 ML SYR ONE (17:26)
[2019-01-24] MEDS ORDERED: ROCURONIUM BROMIDE 10 MG/ML 5ML VIAL ONE (17:26)
[2019-01-24] MEDS ORDERED: NEOSTIGMINE 5 MG/5ML SYR ONE (17:26)
[2019-01-24] MEDS ORDERED: MIDAZOLAM HCL 2 MG/2 ML VIAL ONE (17:52)
[2019-01-24] MEDS ORDERED: FENTANYL CITRATE/PF 100MCG/2 ML INJ ONE (17:52)
--- NOTE | 2019-01-24 18:39 | NUR ---
MEDICATED PER MD ORDER FOR 610 ABD PAIN, EDUCATED TO CALL FOR ASSISTANCE, PT VERBALIZED UNDERSTANDING, CALL LIGHT WITHIN REACH
--- NOTE | 2019-01-24 19:16 | NUR ---
received patient aaox3, resting in bed, stable. no needs voiced. bed locked, lowest position, call light within easy reach.
[2019-01-25 00:38] VITALS: BP 124/60
--- NOTE | 2019-01-25 00:43 | NUR ---
walking rounds, patient resting with eyes closed. no distress observed.
[2019-01-25 04:42] VITALS: BP 108/62
[2019-01-25 06:03] LABS: BASOPHILS % 0.2 % (0.0-1.0); EOSINOPHILS # (AUTO) 0.1 (0.0-0.4); EOSINOPHILS % 1.1 % (0.0-6.0); HEMATOCRIT 25.6 % (38.2-49.6); HEMOGLOBIN 8.1 g/dL (14.0-18.0); LYMPHOCYTES # (AUTO) 1.4 (1.0-3.2); LYMPHOCYTES % 15.2 % (18.0-39.1); MEAN CORPUSCULAR HEMOGLOBIN 31.2 pg (28-32); MEAN CORPUSCULAR HGB CONC 31.6 g/dL (31-35); MEAN CORPUSCULAR VOLUME 98.5 fL (81-99); MONOCYTES # (AUTO) 0.7 (0.2-0.8); NEUTROPHILS % 75.1 % (38.7-80.0); PLATELET COUNT 272 x10e3/uL (140-360); RED CELL DISTRIBUTION WIDTH 15.5 % (11.7-14.4)
[2019-01-25 06:23] LABS: ANION GAP 10.1 mmol/L (8-16); BLOOD UREA NITROGEN 5 mg/dL (7-26); BUN/CREATININE RATIO 7 (6-25); CALCIUM 7.8 mg/dL (8.4-10.2); CARBON DIOXIDE 26 mmol/L (22-29); CHLORIDE 110 mmol/L (98-107); CREATININE, SERUM 0.67 mg/dL (0.72-1.25); EST GLOMERULAR FILTRATION RATE > 60 ML/MIN (60-); GLUCOSE 106 mg/dL (74-118); POTASSIUM 4.1 mmol/L (3.5-5.1); SODIUM 142 mmol/L (136-145)
[2019-01-25 08:08] VITALS: BP 133/65
[2019-01-25] MEDS: SODIUM CHLORIDE 0.9% 1000ML 1,000 ML IV SCH (08:15)
[2019-01-25] MEDS: INSULIN LISPRO 100 UNIT/1 ML 3ML VIAL SQ SCH (08:20)
[2019-01-25] MEDS: PANTOPRAZOLE 40 MG 10ML VIAL IV SCH (08:30)
[2019-01-25] MEDS: LISINOPRIL 10 MG TAB PO SCH (08:30)
[2019-01-25] MEDS: ESCITALOPRAM OXALATE 10 MG TAB PO SCH (08:30)
[2019-01-25 08:35] VITALS: BP 133/65
--- NOTE | 2019-01-25 08:45 | NUR ---
MD Anand QIU INTO SEE PT, DISCUSSED DISCHARGE INSTRUCTIONS, PT VERBALIZED UNDERSTANDING
--- NOTE | 2019-01-25 10:43 | NUR ---
DISCHARGE INSTRUCTIONS REVIEWED WITH PT AND FAMILY, VERBALIZED UNDERSTANDING, WHEELED OFF UNIT VIA WC FOR DISCHARGE, NO CHANGE IN CONDITION
== END 2019-01-25 10:30 | disposition home or self-care (01) | DRG 346 ==
LOC: MED/SURG 09:45
PROVIDERS: ADMIT Surgery; ATTEND Surgery
PROC: 0DJD4ZZ Inspection of Lower Intestinal Tract, Percutaneous Endoscopic Approach (ICD-10-PCS; principal; 2019-01-24 13:32)
DX: K57.13 Diverticulitis of small intestine without perforation or abscess with bleeding (principal); E11.9 Type 2 diabetes mellitus without complications; I10 Essential (primary) hypertension; D64.9 Anemia, unspecified; Z79.84 Long term (current) use of oral hypoglycemic drugs
CPT/HCPCS: 36415; 74174; 78278; 80048; 80053; 82607; 82746; 82948; 85025; 85610; 85730; 86850; 86900; 86920; 96372; A9512; J2001; J2250; J2405; J2710; J3010; J7030; J7050; P9016; Q9967

== ENCOUNTER → 2019-05-07 | Outpatient (CLI) | payer MEDICARE, BC ==
[2019-05-07 15:58] LABS: BASOPHILS % 0.4 % (0.0-1.0); EOSINOPHILS # (AUTO) 0.4 (0.0-0.4); EOSINOPHILS % 3.4 % (0.0-6.0); HEMATOCRIT 43.7 % (38.2-49.6); HEMOGLOBIN 14.6 g/dL (14.0-18.0); LYMPHOCYTES # (AUTO) 2.4 (1.0-3.2); LYMPHOCYTES % 22.4 % (18.0-39.1); MEAN CORPUSCULAR HEMOGLOBIN 30.3 pg (28-32); MEAN CORPUSCULAR HGB CONC 33.4 g/dL (31-35); MEAN CORPUSCULAR VOLUME 90.7 fL (81-99); MONOCYTES # (AUTO) 1.2 (0.2-0.8); MONOCYTES % 11.1 % (4.4-11.3); NEUTROPHILS # (AUTO) 6.8 (2.1-6.9); NEUTROPHILS % 62.3 % (38.7-80.0); PLATELET COUNT 231 x10e3/uL (140-360); RED BLOOD COUNT 4.82 x10e6/uL (4.3-5.7); RED CELL DISTRIBUTION WIDTH 14.1 % (11.7-14.4)
== END ==
LOC: LAB 15:40
PROVIDERS: ATTEND Surgery
DX: R58 Hemorrhage, not elsewhere classified (principal)
CPT/HCPCS: 36415; 85025

== ENCOUNTER 2020-08-09 19:09 | Emergency (ER) | payer MEDICARE, OTHER ==
[~2020-08-09] VITALS: Ht 182.9 cm; Wt 120.2 kg
[2020-08-09] MEDS ORDERED: SODIUM CHLORIDE 0.9% 1000ML 1,000 ML IV STA (19:24)
[2020-08-09] MEDS ORDERED: ONDANSETRON HCL INJ 2MG/ML 2ML 2 MG/ML VIAL IV PRN (19:30)
[2020-08-09 19:35] LABS: BASOPHILS % 0.3 % (0.0-1.0); EOSINOPHILS # (AUTO) 0.4 (0.0-0.4); EOSINOPHILS % 3.8 % (0.0-6.0); HEMATOCRIT 44.5 % (38.2-49.6); HEMOGLOBIN 14.9 g/dL (14.0-18.0); LYMPHOCYTES % 9.5 % (18.0-39.1); MEAN CORPUSCULAR HEMOGLOBIN 31.4 pg (28-32); MEAN CORPUSCULAR HGB CONC 33.5 g/dL (31-35); MEAN CORPUSCULAR VOLUME 93.9 fL (81-99); MONOCYTES # (AUTO) 1.2 (0.2-0.8); MONOCYTES % 10.6 % (4.4-11.3); NEUTROPHILS # (AUTO) 8.3 (2.1-6.9); NEUTROPHILS % 75.4 % (38.7-80.0); PLATELET COUNT 218 x10e3/uL (140-360); RED BLOOD COUNT 4.74 x10e6/uL (4.3-5.7); RED CELL DISTRIBUTION WIDTH 12.2 % (11.7-14.4)
[2020-08-09 19:39] LABS: CLARITY,URINE CLEAR (CLEAR); COLOR,URINE YELLOW (YELLOW); KETONES,URINE NEGATIVE (NEGATIVE); LEUKOCYTE ESTERASE ,URINE NEGATIVE (NEGATIVE); NITRITE,URINE NEGATIVE (NEGATIVE); PROTEIN,URINE DIPSTICK NEGATIVE (NEGATIVE); URINE UROBILINOGEN 0.2 mg/dL (0.2 - 1)
[2020-08-09 19:52] LABS: EPITHELIAL CELLS,URINE RARE /LPF; RBC,URINE 0-5 /HPF (0-5); WBC,URINE (MAN) 0-5 /HPF (0-5)
[2020-08-09 19:54] LABS: ALBUMIN/GLOBULIN RATIO 1.1 (0.8-2.0); ANION GAP 14.2 mmol/L (8-16); CALCIUM 9.4 mg/dL (8.4-10.2); CREATININE, SERUM 1.37 mg/dL (0.72-1.25); POTASSIUM 4.2 mmol/L (3.5-5.1)
[2020-08-09 22:24] VITALS: BP 121/81
== END 2020-08-10 01:48 | disposition home or self-care (01) ==
LOC: ER 19:13
DX: R19.7 Diarrhea, unspecified (principal); E11.65 Type 2 diabetes mellitus with hyperglycemia; I10 Essential (primary) hypertension; K21.9 Gastro-esophageal reflux disease without esophagitis
CPT/HCPCS: 36415; 70450; 80053; 81001; 83690; 85025; 93005; 99284; J7030

== ENCOUNTER → 2021-12-19 | Outpatient (CLI) | payer MEDICARE | LOC: RAD 13:48 | DX: M79.622 Pain in left upper arm (principal) ==